=== PATIENT | female | born 1985 | race Caucasian/White ===

== ENCOUNTER 2018-04-24 04:06 | Emergency (ER) | payer SELFPAY ==
[~2018-04-24] VITALS: Ht 157.5 cm; Wt 80.0 kg
[2018-04-24 04:14] VITALS: BP 126/60; Ht 157.5 cm; Wt 80.0 kg
== END 2018-04-24 06:52 | disposition left against medical advice (07) ==
LOC: ED 04:06
DX: Z53.21 Procedure and treatment not carried out due to patient leaving prior to being seen by health care provider (principal)

== ENCOUNTER 2018-04-24 19:33 | Emergency (ER) | payer MEDICAID ==
[~2018-04-24] VITALS: Ht 157.5 cm; Wt 74.4 kg
[2018-04-24 19:49] VITALS: Ht 157.5 cm; Wt 74.4 kg
[2018-04-24 21:06] VITALS: BP 102/64
== END 2018-04-24 21:06 | disposition home or self-care (01) ==
LOC: ED 19:33
DX: L50.0 Allergic urticaria (principal)
CPT/HCPCS: J1200; J3490; J7512